=== PATIENT | female | born 1980 | race Caucasian/White ===

== ENCOUNTER → 2016-09-22 | Outpatient (REF) ==
[~2016-09-22] MED LIST: CYCL10TA9 PO; HYDR-3812 PO; ONDN4T PO
--- NOTE | 2016-09-22 15:29 | Diagnostic Imaging Report ---
PROCEDURE: MRI right upper extremity without contrast. TECHNIQUE: Multiplanar, multisequence non contrast-enhanced MRI of the upper extremity was accomplished. INDICATION: Right shoulder pain. FINDINGS: There is no os acromiale or Hill-Sachs deformity. The acromioclavicular joint demonstrates mild capsular hypertrophy with no inferior osteophytes. There is mild thickening in the rotator cuff tendon with increased signal compatible with tendinosis and a low-grade partial bursal side tear in the distal infraspinatus tendon. Minimal reactive fluid in the subacromial subdeltoid bursa is seen. The long head biceps tendon appears to be within its groove. The subscapular tendon appears intact. There is increased signal suggested within the upper segment of the labrum raising question of a tear. The muscle bulk and signal around the shoulder is normal. IMPRESSION: 1. Supraspinatus and infraspinatus tendinosis with a low-grade bursal side partial tear seen. 2. Increased signal in the superior segment of the labrum raises question of a labrum tear. Correlate clinically and with MR arthrogram to better evaluate the labrum if needed. Dictated by: Dictated on workstation # [id number]
== END | disposition home or self-care (01) ==
LOC: OCC 13:46
PROVIDERS: ATTEND Nurse Practitioner Family
CPT/HCPCS: 73218

== ENCOUNTER → 2016-09-30 | Outpatient (REF) ==
[~2016-09-30] VITALS: Ht 167.6 cm; Wt 61.2 kg
[~2016-09-30] MED LIST changes: +GADOBUTROL 7.5 MMOL/7.5 ML (GADAVIST) VIAL IV ONE; +IOHEXOL 300 MG/ML 30 ML (OMNIPAQUE 300) VIAL IV ONE
[2016-09-30 13:15] VITALS: BP 120/67
--- NOTE | 2016-09-30 16:19 | Diagnostic Imaging Report ---
EXAMINATION: Fluoroscopic guided joint injection/arthrogram- right. INDICATION: Right shoulder pain, request for MR arthrogram of the shoulder is submitted. Fluoroscopy time: 14 seconds CONSENT: Informed consent was obtained from the patient. The risks, benefits, potential complications and alternatives were reviewed and all questions answered to the patient's satisfaction. PROCEDURE: After sterile preparation and draping, 1% lidocaine was utilized for local anesthesia. A 22 spinal needle is introduced into the glenohumeral joint under fluoroscopic guidance. After confirmation of proper positioning with intra-articular injection of, 12 ml of 1:150 concentration of Gadavist in normal saline is injected the into the joint. The patient tolerated the procedure well with no immediate complications. FINDINGS: Arthrogram demonstrates Normal distribution of contrast in the joint with no filling of the subacromial subdeltoid bursa seen. IMPRESSION: Successful fluoroscopic guided injection of diluted gadolinium into the right shoulder . MR arthrogram to follow. Dictated by: Dictated on workstation # [id number]
--- NOTE | 2016-09-30 16:38 | Diagnostic Imaging Report ---
TECHNIQUE: Multiplanar, multisequence MRI of the right shoulder performed with intra-articular contrast. No IV contrast was administered. INDICATION: Right shoulder pain. FINDINGS: There is no os acromiale or Hill-Sachs deformity. There is mild tendinosis in the supraspinatus and infraspinatus tendons with low-grade mild bursal-sided tear along the distal aspect of these tendons. The subscapularis tendon demonstrates no significant tear. The long head of biceps tendon is in its groove. There is contrast material filling a horizontal linear abnormality along the superior labrum extending posterior to the biceps anchor compatible with a SLAP tear. No displacement. Other segments of the labrum appear preserved. The muscle signal and bulk around the shoulder appear normal. The marrow signal is within normal limits. IMPRESSION: 1. Findings suggestive of a horizontal nondisplaced tear through the superior segment of the labrum. 2. Low-grade bursal-sided partial tear of the distal supraspinatus and infraspinatus tendons. Dictated by: Dictated on workstation # [id number]
== END | disposition home or self-care (01) ==
LOC: OCC 12:31
PROVIDERS: ATTEND Nurse Practitioner Family
CPT/HCPCS: 23350; 73040; 73222

== ENCOUNTER 2016-12-20 15:08 | Outpatient (RCR) | payer OTHER ==
[~2016-12-20 15:08] MED LIST changes: -GADOBUTROL 7.5 MMOL/7.5 ML (GADAVIST) VIAL IV ONE; -IOHEXOL 300 MG/ML 30 ML (OMNIPAQUE 300) VIAL IV ONE
== END 2017-01-04 14:30 | disposition home or self-care (01) ==
PROVIDERS: ATTEND Orthopaedic Surgery Sports Medicine
DX: Z47.89 Encounter for other orthopedic aftercare (principal)

== ENCOUNTER → 2019-12-27 | Outpatient (CLI) | payer BC, OTHER ==
[~2019-12-27] MED LIST changes: +ACHD5005 PO; -HYDR-3812 PO
--- NOTE | 2019-12-27 18:42 | Diagnostic Imaging Report ---
INDICATION: Routine screening. COMPARISON: No prior mammogram is available for comparison. This is a baseline study. EXAMINATION: 2D and 3D bilateral screening mammography was performed with CAD. The current study was also evaluated with a Computer Aided Detection (CAD) system. FINDINGS: Both breasts show marked parenchymal heterogeneity and increased density, limiting the sensitivity of mammography. There are benign calcifications present. No dominant mass or malignant appearing microcalcifications are seen. Axillae are unremarkable. IMPRESSION: No mammographic features suspicious for malignancy are identified. ACR BI-RADS Category 2: Benign findings. Result letter will be mailed to the patient. Note: At least 10% of breast cancer is not imaged by mammography. Dictated by: Dictated on workstation # [id number]
== END ==
LOC: RAD 11:02
PROVIDERS: ATTEND Family Medicine
DX: Z12.31 Encounter for screening mammogram for malignant neoplasm of breast (principal)
CPT/HCPCS: 77063; 77067

== ENCOUNTER → 2021-02-10 | Outpatient (CLI) | payer BC ==
--- NOTE | 2021-02-10 13:22 | Diagnostic Imaging Report ---
Indication: Routine screening. Comparison is made with prior mammogram from 12/27/2019. 2-D and 3-D bilateral screening mammography was performed with CAD. Both breasts are heterogeneously dense, limiting the sensitivity of mammography. No mass is identified. No malignant-appearing microcalcifications are identified. The axillae are unremarkable. IMPRESSION: BI-RADS Category 1 No mammographic features suspicious for malignancy are identified. ACR BI-RADS Category 1: Negative. Result letter will be mailed to the patient. Note: At least 10% of breast cancer is not imaged by mammography. Dictated by: Dictated on workstation # [id number]
== END ==
LOC: RAD 11:18
PROVIDERS: ATTEND Family Medicine
DX: Z12.31 Encounter for screening mammogram for malignant neoplasm of breast (principal)
CPT/HCPCS: 77063; 77067